=== PATIENT | male | born 1955 | race Two or more races ===

== ENCOUNTER 2017-05-30 06:29 | Inpatient (IN) | payer MEDICAID, OTHER, SELFPAY ==
[~2017-05-30] VITALS: Ht 182.9 cm; Wt 82.0 kg
[2017-05-30] VITALS (7 sets, daily range): BP systolic 103–138; BP diastolic 63–88
[2017-05-30] MEDS ORDERED: LORazepam 2 MG/ML VIAL (J2060) IV STA (07:13)
[2017-05-30 07:44] LABS: BASO % 0.2 % (0.0-1.0); EOS % 0.4 % (0.0-3.0); LARGE UNSTAINED CELL # 0.2 K/mm3 (0.0-0.4); LARGE UNSTAINED CELL % 2.4 % (0.0-4.0); LYMPH # 1.4 K/mm3 (1.5-4.5); LYMPH % 16.1 % (24.0-44.0); MEAN CORPUSCULAR HEMOGLOBIN 38.1 pg (27.0-33.0); MEAN CORPUSCULAR HGB CONC 34.3 g/dl (32.0-36.5); MONO # 0.8 K/mm3 (0.0-0.8); MONO % 10.1 % (0.0-5.0); NEUTROPHILS # 5.3 K/mm3 (1.8-7.7); NEUTROPHILS % 70.8 % (36.0-66.0); PLATELET COUNT, AUTOMATED 145 k/mm3 (150-450); RED CELL DISTRIBUTION WIDTH 13.7 % (11.5-14.5); WHITE BLOOD COUNT 7.5 K/mm3 (4.0-10.0)
[2017-05-30 07:48] LABS: INR 0.99
[2017-05-30] MEDS ORDERED: OXAZEPAM 15 MG CAP PO SCH (08:00)
[2017-05-30] MEDS ORDERED: ONDANSETRON 4MG/2ML VIAL (J2405) IV PRN (08:00)
[2017-05-30 08:02] LABS: ALBUMIN 3.8 GM/DL (3.2-5.2); ALBUMIN/GLOBULIN RATIO 1.03 (1.00-1.93); CALCIUM LEVEL 9.4 MG/DL (8.8-10.2); CREATININE FOR GFR 1.54 MG/DL (0.70-1.30); GLOMERULAR FILTRATION RATE 49.3 (>49); POTASSIUM SERUM 2.8 MEQ/L (3.5-5.1); TOTAL PROTEIN 7.5 GM/DL (6.4-8.2)
--- NOTE | 2017-05-30 08:02 | REP ---
Portable chest x-ray: Single view. History: Delirium tremors. No comparison views. Findings: EKG monitoring electrodes overlie the chest. The lungs are well inflated and clear. Heart is not enlarged. Pulmonary vasculature is not increased. No infiltrate is seen. The pleural angles are sharp. No bony abnormality is seen. Impression: No active disease. Signed by Wagner Leblanc MD 05/30/2017 09:12 A
[2017-05-30] MEDS: NS 1,000 ML IV SCH (08:07)
[2017-05-30] MEDS: DOCUSATE SODIUM 100 MG CAP PO SCH ×2 (08:14→21:42)
[2017-05-30] MEDS: MULTIVITAMINS/MINERALS THERAP 1 TAB PO SCH (08:15)
[2017-05-30] MEDS: FOLIC ACID 1 MG TAB PO SCH (08:15)
[2017-05-30] MEDS ORDERED: POTASSIUM CHLORIDE 10 MEQ SR TABLET PO ONE ×4 (08:15→17:00)
[2017-05-30] MEDS: THIAMINE 100 MG TAB PO SCH (08:15)
[2017-05-30] MEDS: ENOXAPARIN 40 MG/0.4 ML SYRINGE (J1650) SC SCH (08:16)
[2017-05-30] MEDS: OXAZEPAM 15 MG CAP PO SCH ×3 (08:16→16:53)
[2017-05-30 08:28] LABS: MAGNESIUM LEVEL 1.2 MG/DL (1.8-2.4)
[2017-05-30] MEDS ORDERED: KCL 10MEQ IN 100ML SWI (KRUN) 10 MEQ in APPROPRIATE DILUENT 1 EA IV ONE ×2 (09:00)
[2017-05-30] MEDS ORDERED: MAGNESIUM OXIDE 400 MG TAB (MAG-OX) PO ONE (09:00)
[2017-05-30] MEDS: LORazepam 2 MG/ML VIAL (J2060) IV PRN ×2 (09:25→13:23)
--- NOTE | 2017-05-30 09:32 | HPE ---
DATE OF ADMISSION: 05/30/2017 PRIMARY CARE PROVIDER: None listed. CODE STATUS: Full code. CHIEF COMPLAINT: Agitation and visual hallucinations. HISTORY OF PRESENT ILLNESS: 62-year-old gentleman who presented to the emergency department after stopping ingesting alcohol on his own four days ago. His family member is at bedside with him and stated that earlier this morning he developed quite a bit of agitation along with audiovisual hallucinations with picking at bugs as well as he had thought that somebody had broken into his house and was stealing objects. The family member states that he had called 911; however, there were no signs of break in and the paramedics did feel that the patient was suffering from delirium tremens. He does have a significant history of alcohol abuse. He denies any drug use. He has had decreased appetite for the last few days and feels that he has been feeling "agitated and jittery" on the inside. He denies any nausea or vomiting. No chest pain, shortness of breath, productive sputum. No abdominal pain. PAST MEDICAL HISTORY: Negative. PAST SURGICAL HISTORY: Negative. FAMILY HISTORY: Noncontributory. SOCIAL HISTORY: The patient has a known history of long standing alcohol abuse. He states he drinks anywhere from a half bottle to a bottle of Vodka a day. He stopped on his own 4 days ago. He denies any tobacco use. He denies any illicit drug use. No recent travel. No sick contacts. ALLERGIES: No known drug allergies. MEDICATIONS: None. REVIEW OF SYSTEMS: CONSTITUTIONAL: He denies fevers, chills, rigors, but he has had decreased appetite. HEENT: He denies headache, lightheadedness, dizziness, blurry vision, double vision, tinnitus. No difficulty with speech or swallow. PULMONARY: No productive sputum, cough or hemoptysis. CARDIOVASCULAR: He denies chest pain, paroxysmal nocturnal dyspnea (PND) or orthopnea. No lower extremity edema. GASTROINTESTINAL (GI): He has had some nausea with no vomiting and decreased appetite. Bowel movements have been regular. He denies any hematochezia or melena. GENITOURINARY (): No dysuria, frequency or hematuria. MUSCULOSKELETAL: He denies bone, muscle, or joint pain, swelling or erythema, but feels very jittery. NEUROLOGIC: He does describe having audiovisual hallucinations today and feels it is related to his discontinuation of alcohol consumption. He denies paresthesias or paralysis. PSYCHIATRIC: As outlined above, audiovisual hallucinations likely secondary to alcohol withdrawal. No history of depression or anxiety. LYMPHATICS: No lumps, bumps, swelling in the neck, axilla or groin. No night sweats. No lymph nodes. No weight loss. ENDOCRINE: Negative for diabetes. No thyroid disorder. HEMATOLOGY: Negative for bleeding or bruising disorder. No venous thromboembolism. ONCOLOGY: No history of cancer. Ten point review of systems complete, pertinent positives are listed. PHYSICAL EXAMINATION: Temperature 98.8, pulse 101, respiratory rate 20, blood pressure 172/105. He was given a dose of atenolol in the emergency department. Repeat blood pressure in two hours did show a blood pressure of 114/82. SpO2 is 97% on room air. GENERAL: The patient appears to be in no acute distress. He is alert, slightly anxious. HEENT: Head atraumatic, normocephalic. Eyes: Pupils equal and reactive to light and accommodation (URSULA). Throat clear. NECK: Supple. LUNGS: Clear to auscultation bilaterally. HEART: Regular rate and rhythm. ABDOMEN: Soft. Nontender. Nondistended. Positive bowel sounds. No masses. No rebound. EXTREMITIES: He does show some mild asterixis with the upper extremities. Digital Strategy Director strength is otherwise equal. Lower extremities do not show any edema. No calf tenderness. Cranial nerves II-XII are grossly intact. He does not demonstrate any motor or sensory deficits. Again, he does appear to be alert and oriented. LABORATORY DATA: White count is 7.5, hemoglobin 15.3 and platelets are 145. Sodium 131, potassium 2.8, chloride 88, bicarbonate 27, anion gap 16, BUN 32, creatinine 1.54, glucose 85, magnesium 1.2, total bilirubin 2.0, direct bilirubin 1.0, AST 150, ALT 114, alkaline phosphatase 106, CK 670, CK-MB 4.5, troponin 0.07. INR 0.99. Chest x-ray no acute cardiopulmonary disease. 12 lead EKG sinus rhythm, occasional PVC noted, no acute ST-T wave abnormality. IMPRESSION: Mr. Egan is a 62-year-old gentleman who has decided to quit drinking alcohol who unfortunately is experiencing what appears to be delirium tremens. He is having audiovisual hallucinations, some asterixis and will need to be admitted due to additionally having some significant electrolyte abnormalities. PROBLEM LIST: 1. Alcohol abuse with delirium tremens and asterixis. 2. Hypokalemia. 3. Hypomagnesemia. 4. Hyponatremia likely secondary to beer potomania. 5. Mild acute kidney injury with elevated creatinine. 6. Transaminitis likely related to alcohol consumption. 7. Elevated total creatinine kinase, possibly some early rhabdomyolysis. PLAN: The patient will be admitted to the progressive care unit (PCU) on telemetry. Will replete his electrolytes. IV fluids. Monitor for withdrawal symptoms. Patient and Family Services (PFS) consult will be placed. Additionally, will start him on multivitamin, folate, thiamine, and start him on scheduled Serax, as well as, as needed IV Ativan for any breakthrough agitation. Deep vein thrombosis (DVT) prophylaxis is with subcutaneous Lovenox. DISPOSITION: Anticipate the patient to be here greater than two midnights. ADDENDUM: The patient did later inform me that he actually does smokes half a pack to a pack a day and he has had an issue with rash on his lower extremities. Examination does reveal an annular type rash on both anterior shins, approximately 3-5 cm in diameter on the left and 2-3 cm in diameter on the right. IMPRESSION AND PLAN: 1. Tobacco use. He was started on Nicoderm patch, which we encourage smoking cessation and counseling was provided. 2. Rash on lower extremities which appears to be annular in origin and possible tinea in nature. Will go ahead and start on Lotrisone cream twice a day.
[2017-05-30] MEDS ORDERED: OXAZEPAM 10 MG CAP PO ONE (10:00)
[2017-05-30] MEDS: MAG SULF 1GM/100ML (MAG RUN) 1 GM in APPROPRIATE DILUENT 1 EA IV SCH ×2 (10:08→13:04)
[2017-05-30] MEDS: LOTRISONE CREAM 15 GM (BETAMETH/CLOTRIMAZOLE) TOP SCH (10:11)
[2017-05-30] MEDS: ATENOLOL 12.5MG PER 1/2 TABLET PO SCH ×2 (10:11→21:42)
[2017-05-30] MEDS: NICOTINE 14 MG/24 HR TRANSDERMAL TD SCH (13:07)
[2017-05-30] MEDS ORDERED: MULTIVITAMIN -ADULT INJECTION 10 ML, THIAMINE INJection 100 MG, FOLIC ACID 1 MG in NS 1... IV ONE (15:00)
[2017-05-30 15:35] LABS: ALBUMIN 3.6 GM/DL (3.2-5.2); ANION GAP 10 MEQ/L (8-16); BLOOD UREA NITROGEN 32 MG/DL (7-18); CALCIUM LEVEL 9.3 MG/DL (8.8-10.2); CARBON DIOXIDE LEVEL 34 MEQ/L (21-32); CHLORIDE LEVEL 91 MEQ/L (98-107); CREATININE FOR GFR 1.28 MG/DL (0.70-1.30); GLOMERULAR FILTRATION RATE > 60.0 (>49); GLUCOSE, FASTING 87 MG/DL (80-110); MAGNESIUM LEVEL 2.4 MG/DL (1.8-2.4); POTASSIUM SERUM 3.2 MEQ/L (3.5-5.1); SODIUM LEVEL 135 MEQ/L (136-145)
--- NOTE | 2017-05-30 16:08 | ECGEPIP ---
Stationary ECG Study [facility] - ED Test Date: 2017-05-30 Pat Name: ROSEANN BARNEY Department: Room: - Gender: M A/C Tech: tk : [id number] Requested By: Wilbert Anderson Order Number: [id number] Reading MD: iWlbert Max Measurements Intervals [place]man Rate: 95 P: 53 DC: 178 QRS: -14 QRSD: 96 T: 70 QT: 361 QTc: 455 Interpretive Statements SINUS RHYTHM WITH OCCASIONAL VENTRICULAR PREMATURE COMPLEXES NONSPECIFIC ST & T-WAVE ABNORMALITY NO PRIORS Electronically Signed On 05-30-2017 16:07:35 EDT by Wilbert Max
[2017-05-31] VITALS (8 sets, daily range): BP systolic 114–150; BP diastolic 66–84
[2017-05-31] MEDS: OXAZEPAM 15 MG CAP PO SCH ×4 (00:26→17:51)
[2017-05-31] MEDS: LOTRISONE CREAM 15 GM (BETAMETH/CLOTRIMAZOLE) TOP SCH ×3 (00:28→20:12)
[2017-05-31] MEDS: NS 1,000 ML IV SCH ×4 (03:02→22:49)
[2017-05-31 05:38] LABS: MEAN CORPUSCULAR HEMOGLOBIN 37.9 pg (27.0-33.0); MEAN CORPUSCULAR HGB CONC 34.6 g/dl (32.0-36.5); MEAN CORPUSCULAR VOLUME 109.5 fl (80.0-96.0); RED CELL DISTRIBUTION WIDTH 12.8 % (11.5-14.5); WHITE BLOOD COUNT 5.4 K/mm3 (4.0-10.0)
[2017-05-31 05:51] LABS: ALBUMIN/GLOBULIN RATIO 0.97 (1.00-1.93); ALKALINE PHOSPHATASE 89 U/L (45-117); ALT/SGPT 98 U/L (12-78); ANION GAP 9 MEQ/L (8-16); AST/SGOT 106 U/L (15-37); BILIRUBIN,TOTAL 1.4 MG/DL (0.2-1.0); BLOOD UREA NITROGEN 24 MG/DL (7-18); CALCIUM LEVEL 8.1 MG/DL (8.8-10.2); CARBON DIOXIDE LEVEL 30 MEQ/L (21-32); CHLORIDE LEVEL 101 MEQ/L (98-107); CREATININE FOR GFR 0.73 MG/DL (0.70-1.30); GLOMERULAR FILTRATION RATE > 60.0 (>49); GLUCOSE, FASTING 65 MG/DL (80-110); POTASSIUM SERUM 3.3 MEQ/L (3.5-5.1); SODIUM LEVEL 140 MEQ/L (136-145); TOTAL PROTEIN 6.1 GM/DL (6.4-8.2)
[2017-05-31 05:53] LABS: INR 1.03
[2017-05-31] MEDS ORDERED: POTASSIUM CHLORIDE 10 MEQ SR TABLET PO ONE ×2 (06:45→11:45)
[2017-05-31] MEDS: NICOTINE 14 MG/24 HR TRANSDERMAL TD SCH (08:46)
[2017-05-31] MEDS: MULTIVITAMINS/MINERALS THERAP 1 TAB PO SCH (08:46)
[2017-05-31] MEDS: THIAMINE 100 MG TAB PO SCH (08:47)
[2017-05-31] MEDS: DOCUSATE SODIUM 100 MG CAP PO SCH ×2 (08:47→20:04)
[2017-05-31] MEDS: FOLIC ACID 1 MG TAB PO SCH (08:47)
[2017-05-31] MEDS: ENOXAPARIN 40 MG/0.4 ML SYRINGE (J1650) SC SCH (08:47)
[2017-05-31] MEDS: ATENOLOL 12.5MG PER 1/2 TABLET PO SCH ×2 (08:48→20:09)
--- NOTE | 2017-05-31 12:14 | IPN ---
DATE: 05/31/2017 62-year-old gentleman seen at bedside. Admitted yesterday for symptoms of alcohol withdrawal with delirium tremens (DTs) who has not had any issues previously with seizures, but has been on withdrawal precautions and a sitter at bedside. He does appear to be much less agitated today. He is alert and oriented and appears to be in good spirits. He denies chest pain, vomiting, shortness of breath. No abdominal pain. OBJECTIVE: Temperature 98.6, pulse 61, respiratory rate is 18, blood pressure (BP) 155/84, SPO2 is 95% on room air. General: The patient appears to be in no acute distress. He is alert, oriented, pleasant. HEENT unremarkable. Lungs: Clear. Heart: Regular rate and rhythm. Abdomen: Soft. Extremities: No edema. No calf tenderness. LABORATORIES: White count 5.4, hemoglobin 13.9, platelets 131,000. Sodium 140, potassium 3.3 - which we will supplement, chloride 101, bicarb 30, anion gap 9, BUN is 24, creatinine 0.73, glucose 65, total bilirubin 1.4 down from 2, AST 106, ALT 98, alkaline phosphatase 89. These are trending downward nicely. INR is 1.03. ASSESSMENT/PLAN: 1. Alcohol withdrawal with DTs on admission. This does appear to be improving. His asterixis does appear to be improving as well. Will continue with Serax, Ativan for breakthrough agitation, as well as, multivitamin, folic acid and thiamine. 2. Hypokalemia. Will replete. 3. Hypomagnesemia, resolved. 4. Hyponatremia, likely secondary to beer potomania. Sodium is normalized. 5. Mild acute kidney injury with elevated creatinine. This is improving. 6. Transaminitis. Is trending better as well. Will continue to follow. 7. Elevated total CK with likely mild rhabdomyolysis. DVT prophylaxis with subcutaneous Lovenox. DISPOSITION: We will plan on downgrading to progressive care unit (PCU) today, but I would like to keep him on telemetry for another 24 hours. We can likely get rid of the sitter. Appreciate PFS assistance for outpatient resources and physical therapy (PT) evaluation and treatment will order today as well.
--- NOTE | 2017-05-31 16:08 | REP ---
Left knee series: Five views. History: Left knee pain. Findings: Five views of the left knee demonstrate normal bones, joints, and soft tissues. No evidence of fracture or joint effusion. No erosive changes seen. Impression: Negative left knee radiographs. Signed by Wagner Leblanc MD 05/31/2017 05:00 P
[2017-05-31] MEDS: ACETAMINOPHEN TAB 650MG DOSE (2X325MG) PO PRN (16:38)
[2017-06-01] VITALS: BP 149/93
[2017-06-01] MEDS: OXAZEPAM 15 MG CAP PO SCH ×4 (00:23→18:10)
[2017-06-01 04:19] VITALS: BP 146/84
[2017-06-01 05:39] LABS: ALBUMIN 2.7 GM/DL (3.2-5.2); ALBUMIN/GLOBULIN RATIO 0.82 (1.00-1.93); ALKALINE PHOSPHATASE 105 U/L (45-117); ALT/SGPT 88 U/L (12-78); ANION GAP 8 MEQ/L (8-16); AST/SGOT 74 U/L (15-37); BILIRUBIN,TOTAL 0.9 MG/DL (0.2-1.0); BLOOD UREA NITROGEN 16 MG/DL (7-18); CALCIUM LEVEL 8.1 MG/DL (8.8-10.2); CARBON DIOXIDE LEVEL 28 MEQ/L (21-32); CHLORIDE LEVEL 107 MEQ/L (98-107); CREATININE FOR GFR 0.64 MG/DL (0.70-1.30); GLOMERULAR FILTRATION RATE > 60.0 (>49); GLUCOSE, FASTING 100 MG/DL (80-110); POTASSIUM SERUM 3.3 MEQ/L (3.5-5.1); SODIUM LEVEL 143 MEQ/L (136-145)
[2017-06-01 05:40] LABS: MEAN CORPUSCULAR HEMOGLOBIN 37.7 pg (27.0-33.0); MEAN CORPUSCULAR HGB CONC 33.8 g/dl (32.0-36.5); MEAN CORPUSCULAR VOLUME 111.8 fl (80.0-96.0); RED CELL DISTRIBUTION WIDTH 13.5 % (11.5-14.5); WHITE BLOOD COUNT 6.1 K/mm3 (4.0-10.0)
[2017-06-01 05:43] LABS: INR 0.97
[2017-06-01 08:00] VITALS: BP 156/90
[2017-06-01] MEDS: DOCUSATE SODIUM 100 MG CAP PO SCH ×2 (09:00→20:43)
[2017-06-01] MEDS ORDERED: POTASSIUM CHLORIDE 10 MEQ SR TABLET PO ONE (09:00)
[2017-06-01] MEDS: NS 1,000 ML IV SCH ×2 (09:10→09:23)
[2017-06-01] MEDS: ENOXAPARIN 40 MG/0.4 ML SYRINGE (J1650) SC SCH (09:19)
[2017-06-01] MEDS: MULTIVITAMINS/MINERALS THERAP 1 TAB PO SCH (09:20)
[2017-06-01] MEDS: THIAMINE 100 MG TAB PO SCH (09:20)
[2017-06-01] MEDS: FOLIC ACID 1 MG TAB PO SCH (09:20)
[2017-06-01] MEDS: NICOTINE 14 MG/24 HR TRANSDERMAL TD SCH (09:21)
[2017-06-01] MEDS: LOTRISONE CREAM 15 GM (BETAMETH/CLOTRIMAZOLE) TOP SCH ×2 (09:22→20:44)
[2017-06-01] MEDS: ATENOLOL 12.5MG PER 1/2 TABLET PO SCH (09:22)
[2017-06-01 11:30] VITALS: BP 152/98
--- NOTE | 2017-06-01 13:18 | REP ---
Left lower extremity Duplex Doppler venous ultrasound: Real time compression and duplex Doppler interrogation of the left lower extremity deep venous system is performed. The left common femoral, superficial femoral and popliteal veins are fully compressible with transducer pressure and demonstrate normal spontaneous and phasic flow, without evidence of deep venous thrombosis. Impression: No evidence of deep venous thrombosis of the left lower extremity femoral popliteal venous system. 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 Signed by Cam Avery MD 06/01/2017 08:55 A
--- NOTE | 2017-06-01 13:20 | IPN ---
DATE: 06/01/2017 62-year-old gentleman seen at bedside, resting more comfortably with complaints of some left leg pain, swelling and erythema since last night. Physical therapy was concerned he may have early signs of a deep venous thrombosis (DVT). He denies any chest pain, shortness breath, feels less anxious and is tolerating oral intake and feels his appetite is returning. OBJECTIVE: Temperature is 98.9, pulse 83, respiratory rate is 20, blood pressure 146/84, SpO2 is 97% on room air. General: The patient appears to be in no acute distress. He is alert, oriented, pleasant. HEENT: Unremarkable. Lungs: Clear. Heart: Regular rhythm. Abdomen: Soft. Extremities: He does have some swelling, tenderness, erythema of the left calf. Otherwise, pulses are intact. Upper extremities, he has still some mild asterixis but this appears to be improved as well. Good senior pl sql developer strength and no motor or sensory deficits. LABORATORY DATA: White count 6.1, hemoglobin 13.5, platelets 166,000. Sodium is 143, potassium 3.3, which we will supplement, chloride 107, bicarbonate 28, anion gap 8, BUN 16, creatinine 0.64, glucose is 100, calcium 8.1, AST 74, ALT 88, alkaline phosphatase 105. X-ray of the left knee is unremarkable for any acute findings. Venous ultrasound is pending to rule out DVT of the left leg. ASSESSMENT AND PLAN: 1. Left leg pain, swelling and calf tenderness. We will out DVT by checking venous ultrasound. 2. Hypokalemia. We will replete. 3. Alcoholism with withdrawal symptoms and delirium tremens (DTs) on admission. He does appear to be improving with his symptoms. He has not shown any issues on telemetry and I believe today would be a good day to downgrade him to the general medical floor. We will continue with Serax, Ativan for breakthrough agitation, as well as multivitamin, folic acid, thiamine, and I have asked patient and family services (PFS) to be on board to make sure that he has appropriate outpatient resources 4. Hyponatremia is improved. This likely was secondary to beer potomania. 5. Mild acute kidney injury with elevated creatinine on admission. He has moved back towards baseline. 6. Transaminitis. Much better today. Continues to show better improvement. Elevated CK with likely mild rhabdomyolysis on admission. He has continue to hydrate well and will continue to follow his renal function. 7. Deep venous thrombosis prophylaxis. Subcu Lovenox. DISPOSITION: Again, we will downgrade the patient today to the general medical floor. PFS is on board. Appreciate their assistance with outpatient resources and likely he will be ready for home discharge. Pending his ultrasound of the lower extremities, we may need to consider anticoagulation should he have a DVT.
[2017-06-01 14:00] VITALS: BP 152/94
[2017-06-01] MEDS: ACETAMINOPHEN TAB 650MG DOSE (2X325MG) PO PRN (18:09)
[2017-06-01] MEDS: ATENOLOL 25 MG TAB PO SCH (20:44)
[2017-06-01 22:00] VITALS: BP 144/90
[2017-06-02] MEDS: OXAZEPAM 15 MG CAP PO SCH ×2 (00:02→05:46)
[2017-06-02] MEDS: NS 1,000 ML IV SCH (05:46)
[2017-06-02 06:00] VITALS: BP 164/98
[2017-06-02 06:27] LABS: MEAN CORPUSCULAR HEMOGLOBIN 37.6 pg (27.0-33.0); MEAN CORPUSCULAR HGB CONC 33.6 g/dl (32.0-36.5); MEAN CORPUSCULAR VOLUME 111.7 fl (80.0-96.0); WHITE BLOOD COUNT 5.1 K/mm3 (4.0-10.0)
[2017-06-02] MEDS ORDERED: amLODIPine 5 MG TAB PO ONE (06:30)
[2017-06-02 06:36] LABS: INR 0.88
[2017-06-02 06:51] LABS: ALBUMIN 2.7 GM/DL (3.2-5.2); ALBUMIN/GLOBULIN RATIO 0.82 (1.00-1.93); ALKALINE PHOSPHATASE 112 U/L (45-117); ALT/SGPT 92 U/L (12-78); ANION GAP 6 MEQ/L (8-16); AST/SGOT 68 U/L (15-37); BILIRUBIN,TOTAL 0.7 MG/DL (0.2-1.0); BLOOD UREA NITROGEN 9 MG/DL (7-18); CALCIUM LEVEL 8.6 MG/DL (8.8-10.2); CARBON DIOXIDE LEVEL 27 MEQ/L (21-32); CHLORIDE LEVEL 110 MEQ/L (98-107); CREATININE FOR GFR 0.73 MG/DL (0.70-1.30); GLOMERULAR FILTRATION RATE > 60.0 (>49); GLUCOSE, FASTING 143 MG/DL (80-110); POTASSIUM SERUM 3.3 MEQ/L (3.5-5.1); SODIUM LEVEL 143 MEQ/L (136-145)
[2017-06-02] MEDS: DOCUSATE SODIUM 100 MG CAP PO SCH (08:30)
[2017-06-02] MEDS: MULTIVITAMINS/MINERALS THERAP 1 TAB PO SCH (08:30)
[2017-06-02 08:31] VITALS: BP 154/82
[2017-06-02] MEDS: ATENOLOL 25 MG TAB PO SCH (08:31)
[2017-06-02] MEDS: NICOTINE 14 MG/24 HR TRANSDERMAL TD SCH (08:32)
[2017-06-02] MEDS: LOTRISONE CREAM 15 GM (BETAMETH/CLOTRIMAZOLE) TOP SCH (08:32)
[2017-06-02] MEDS: ENOXAPARIN 40 MG/0.4 ML SYRINGE (J1650) SC SCH (08:32)
[2017-06-02] MEDS: FOLIC ACID 1 MG TAB PO SCH (08:32)
[2017-06-02] MEDS: THIAMINE 100 MG TAB PO SCH (08:32)
[2017-06-02] MEDS ORDERED: POTASSIUM CHLORIDE 10 MEQ SR TABLET PO ONE (09:30)
[2017-06-02] MEDS ORDERED: OXAZEPAM 15 MG CAP PO SCH (12:00)
[2017-06-02 14:00] VITALS: BP 164/98
[2017-06-02] MEDS ORDERED: NICO14PA TD (14:38)
[2017-06-02] MEDS ORDERED: FOLI1TAB4 PO (14:38)
[2017-06-02] MEDS ORDERED: THIA100TA PO (14:38)
[2017-06-02] MEDS ORDERED: ATEN25TA PO (14:38)
[2017-06-02] MEDS ORDERED: VITMTA PO (14:38)
--- NOTE | 2017-06-02 16:20 | DSES ---
DATE OF ADMISSION: 05/30/2017 DATE OF DISCHARGE: 06/02/2017 PRIMARY CARE PROVIDER: To be established. CONSULTANTS: None. PROCEDURES PERFORMED: None. COMPLICATIONS: None. ADMISSION/DISCHARGE DIAGNOSES: 1. Alcohol abuse with delirium tremens and asterixis. 2. Hypokalemia, resolved. 3. Hypomagnesemia, resolved. 4. Hyponatremia secondary to beer potomania, resolved. 5. Mild acute kidney injury with elevated creatinine, resolved. 6. Transaminitis related to alcohol consumption, resolved. 7. Elevated total creatinine due to early rhabdomyolysis, resolved. BRIEF HOSPITAL COURSE: Mr. Egan is a 62-year-old gentleman who unfortunately has a history of alcohol abuse, presented to the emergency department with quite a bit of agitation, audiovisual hallucinations thinking bugs and thinking somebody had broken into his house. He was accompanied by family member who was concerned for his health and was brought to the emergency department and found with elevated blood alcohol level with known history of withdrawal symptoms, but no seizures and electrolyte abnormalities. The hospitalist was called for admission. The patient was admitted to the telemetry floor, monitored on telemetry until symptoms improved and his electrolytes were repleted. For further information regarding intake physical labs, diagnostics please refer to the history and physical. On day of discharge, he was felt to be back to his baseline. Physical therapy did accomplish a home safety evaluation and he was felt to be safe OBJECTIVE Temperature 97.5, pulse 77, respiratory rate 18, blood pressure 154/82, SpO2 is 97% on room air. GENERAL: The patient appears to be in no acute distress, alert, oriented. HEENT: Unremarkable. LUNGS: Clear. HEART: Regular rate and rhythm. ABDOMEN: Soft. EXTREMITIES: No edema or calf tenderness. LABORATORY DATA: White count 5.1, hemoglobin 12.3, platelets 204. Sodium 143, potassium 3.3, which we supplemented, chloride 110, bicarbonate 27, anion gap 6, BUN 9, creatinine 0.73, glucose 143, total bilirubin 0.7, AST is 68, ALT 92, alkaline phosphatase is 112, albumin 2.7, INR 0.88. He did have a complaint of left leg pain posterior to the knee, which did demonstrate Velez's cyst, which he can followup as an outpatient for should it become problematic. Other outstanding tests included a left knee x-ray, which was unremarkable. Chest x-ray on admission showed no acute cardiopulmonary disease. Discharge condition is good. DISPOSITION: Discharge to home. DISCHARGE MEDICATIONS: - atenolol 12.5 mg twice a day - folic acid 1 mg daily - multivitamin one tablet daily - Nicoderm 14 mg patch daily - thiamine 100 mg daily DISCHARGE INSTRUCTIONS: Discharge home. Activity as tolerated. Regular diet. Avoid alcohol consumption. Patient and family services (PFS) did provide him with outpatient resources. Should he find that he has continued issues, we did encourage resources such as AA or a formal detox facility. The patient voices understanding. He is instructed to seek medical attention should symptoms worsen. Discharge took 35 minutes.
== END 2017-06-02 15:41 | disposition home or self-care (01) | DRG 775 ==
LOC: M ED 06:29 → M ED INP 07:54 → M ICU 12:45 → M MSPAV 06-01 11:32
PROVIDERS: ADMIT Hospitalist; ATTEND Hospitalist
DX: F10.231 Alcohol dependence with withdrawal delirium (principal); E87.6 Hypokalemia; E83.42 Hypomagnesemia; E87.1 Hypo-osmolality and hyponatremia; N17.9 Acute kidney failure, unspecified; M62.82 Rhabdomyolysis; F17.210 Nicotine dependence, cigarettes, uncomplicated; B35.8 Other dermatophytoses

== ENCOUNTER → 2018-02-19 | Outpatient (REF) | payer OTHER ==
[2018-02-19 16:30] LABS: ANION GAP 4 MEQ/L (8-16); BLOOD UREA NITROGEN 14 MG/DL (7-18); CALCIUM LEVEL 9.5 MG/DL (8.8-10.2); CARBON DIOXIDE LEVEL 27 MEQ/L (21-32); CHLORIDE LEVEL 105 MEQ/L (98-107); GLOMERULAR FILTRATION RATE > 60.0 (>49); GLUCOSE, FASTING 99 MG/DL (70-100); POTASSIUM SERUM 4.6 MEQ/L (3.5-5.1); SODIUM LEVEL 136 MEQ/L (136-145)
== END ==
LOC: M SFHCPLAZ 13:45
DX: I10 Essential (primary) hypertension (principal)